=== PATIENT | female | born 1955 | race Caucasian/White ===

== ENCOUNTER 2018-01-08 12:27 | Emergency (ER) | payer OTHER, MEDICAID, SELFPAY ==
[2018-01-08 12:29] VITALS: BP 135/73; PULSE 62; RESP 18; TEMP 37; O2SAT 99
--- NOTE | 2018-01-08 12:32 | DI.CT.S_ITS ---
PROCEDURE: CT HEAD/BRAIN WO CON INDICATIONS: headache, nausea / vomiting after fall hitting head TECHNIQUE: Noncontrast 4.5 mm thick angled axial sections acquired from the foramen magnum to the vertex, with coronal and sagittal reformats. For radiation dose reduction, the following was used: automated exposure control, adjustment of mA and/or kV according to patient size. COMPARISON: None. FINDINGS: Image quality: Excellent. CSF spaces: Basal cisterns are patent. No extra-axial fluid collections. Ventricles are normal in size and shape. Brain: No midline shift. No intracranial masses or hemorrhage. Danielson-white matter interface is normal. Skull and face: Calvarium and visualized facial bones are intact, without suspicious lesions. Sinuses: Mucosal thickening noted in hypoplastic left frontal sinus and scattered throughout the ethmoid air cells bilaterally. mastoids are clear. IMPRESSION: No acute intracranial disease process. Dictated by: Trinh Gillis MD, PhD on 01/08/2018 at 12:53 Approved by: Trinh Gillis MD, PhD on 01/08/2018 at 12:57
--- NOTE | 2018-01-08 12:32 | DI.RAD.S_ITS ---
PROCEDURE: XR RIBS LT MIN 3V W CXR1V INDICATIONS: L rib pain nausea / vomiting after fall hitting head TECHNIQUE: 2 views of the left ribs were acquired, along with a single view chest. COMPARISON: None. FINDINGS: Midline skin be seen. Surgical changes and devices: None. Bones and chest wall: Mildly to moderately displaced left lateral rib fractures are seen anteriorly affecting at least the 9th through 11th ribs. No suspicious bony lesions. Overlying soft tissues appear unremarkable. Lungs and pleura: No pleural effusions or pneumothorax. Lungs appear clear, yet hyperexpanded. Mediastinum: Mediastinal contours appear normal. Heart size is normal. IMPRESSION: Left inferolateral rib fractures. No definite associated pneumothorax. Dictated by: Ben Boyer M.D. on 01/08/2018 at 11:50 Approved by: Ben Boyer M.D. on 01/08/2018 at 11:54
--- NOTE | 2018-01-08 16:21 | ED.FALL ---
HPI - Fall General Chief Complaint: Fall Stated Complaint: FELL,HIT HEAD,BACK AND RIBS Time Seen by Provider: 01/08/18 17:22 Related Data Home Medications Medication Instructions Recorded Confirmed acetaminophen 500 mg capsule 1,000 mg PO Q6H PRN 01/08/18 01/08/18 Previous Rx's Medication Instructions Recorded paroxetine HCl 40 mg PO QDAY #90 tab 06/19/17 sumatriptan succinate 50 mg PO PRN #9 tab 06/19/17 clonazepam 1 mg tablet 1 - 1.5 mg PO BID #90 tab 12/07/17 Allergies Allergy/AdvReac Type Severity Reaction Status Date / Time aspirin [ASPIRIN] Allergy Mild GI UPSET Verified 01/08/18 12:31 caffeine [CAFFEINE] Allergy Mild HYPERACTIVITY Verified 01/08/18 12:31 FOR DAYS ibuprofen [IBUPROFEN] Allergy Mild GI UPSET Verified 01/08/18 12:31 Exam Initial Vital Signs Initial Vital Signs: Vital Signs Temperature 98.6 F 01/08/18 12:29 Pulse Rate 62 01/08/18 12:29 Respiratory Rate 18 01/08/18 12:29 Blood Pressure 135/73 01/08/18 12:29 Pulse Oximetry 99 01/08/18 12:29 PFSH Medical History Anxiety (Chronic ~1989) Chronic headaches (Chronic ~2001) Migraines (Chronic ~1999) Osteoporosis (Chronic ~2003) RLS (restless legs syndrome) (Chronic ~1999) Anemia (Resolved 2006) Chicken pox (Resolved 1961) HPV (human papilloma virus) infection (Resolved 1987) Measles (Resolved 1962) Mumps (Resolved 1959) Surgical History Anesthesia (Resolved) Status post biopsy (Resolved 1985) Status post breast biopsy (Resolved) Family History Father Heart disease Cardiomyopathy Mother Age: 90 Hypertension High cholesterol Osteoporosis Stroke Sister High cholesterol Sister Osteoporosis Social History Smoking Status: Never smoker Course Orders Ordered: ED Orders 01/08/18 12:32 CT head/brain wo con Stat XR ribs LT min 3V w CXR1V Stat Vital Signs - 8 hr 01/08/18 12:29 Temperature 98.6 F Pulse Rate 62 Respiratory Rate 18 Blood Pressure 135/73 Pulse Oximetry 99 MDM - Fall Imaging Data Chest x-ray: Radiologist's impression: [address] [address] XRay Report Signed Patient: Jennifer Humphrey RMR#: [id number] : [id number]:[id number] Age/Sex: 62 / FDate of Service: 01/08/18 Loc: ED Accession Number: [id number] Procedure: XR ribs LT min 3V w CXR1V Ordering Provider: Bianca Em D.O. PROCEDURE: XR RIBS LT MIN 3V W CXR1V INDICATIONS: L rib pain nausea / vomiting after fall hitting head TECHNIQUE: 2 views of the left ribs were acquired, along with a single view chest. COMPARISON: None. FINDINGS: Midline skin be seen. Surgical changes and devices: None. Bones and chest wall: Mildly to moderately displaced left lateral rib fractures are seen anteriorly affecting at least the 9th through 11th ribs. No suspicious bony lesions. Overlying soft tissues appear unremarkable. Lungs and pleura: No pleural effusions or pneumothorax. Lungs appear clear, yet hyperexpanded. Mediastinum: Mediastinal contours appear normal. Heart size is normal. IMPRESSION: Left inferolateral rib fractures. No definite associated pneumothorax. Dictated by: Ben Boyer M.D. on 01/08/2018 at 11:50 Approved by: Ben Boyer M.D. on 01/08/2018 at 11:54 CT scan - head: Radiologist's impression: [place] [address] CT Scan Report Signed Patient: Jennifer Humphrey R#: [id number] : 4Acct:[id number] Age/Sex: 62 / FDate of Service: 01/08/18 Loc: ED Accession Number: [id number] Procedure: CT head/brain wo con Ordering Provider: Bianca Em D.O. PROCEDURE: CT HEAD/BRAIN WO CON INDICATIONS: headache, nausea / vomiting after fall hitting head TECHNIQUE: Noncontrast 4.5 mm thick angled axial sections acquired from the foramen magnum to the vertex, with coronal and sagittal reformats. For radiation dose reduction, the following was used: automated exposure control, adjustment of mA and/or kV according to patient size. COMPARISON: None. FINDINGS: Image quality: Excellent. CSF spaces: Basal cisterns are patent. No extra-axial fluid collections. Ventricles are normal in size and shape. Brain: No midline shift. No intracranial masses or hemorrhage. Danielson-white matter interface is normal. Skull and face: Calvarium and visualized facial bones are intact, without suspicious lesions. Sinuses: Mucosal thickening noted in hypoplastic left frontal sinus and scattered throughout the ethmoid air cells bilaterally. mastoids are clear. IMPRESSION: No acute intracranial disease process. Dictated by: Trinh Gillis MD, PhD on 01/08/2018 at 12:53 Approved by: Trinh Gillis MD, PhD on 01/08/2018 at 12:57 Discharge Plan Departure Prescriptions: No Action sumatriptan succinate 50 MG tablet 50 mg PO PRN Qty: 9 RF: 3 paroxetine HCl 40 MG tablet 40 mg PO QDAY Qty: 90 RF: 3 clonazepam [Klonopin] 1 mg tablet 1 - 1.5 mg PO BID Qty: 90 RF: 1 acetaminophen 500 mg capsule 1,000 mg PO Q6H PRN (Reason: pain) RF: 0
--- NOTE | 2018-01-08 17:28 | ED_ITS ---
HPI - Fall General Chief Complaint: Fall Stated Complaint: FELL,HIT HEAD,BACK AND RIBS Time Seen by Provider: 01/08/18 17:22 Related Data Home Medications Medication Instructions Recorded Confirmed acetaminophen 500 mg capsule 1,000 mg PO Q6H PRN 01/08/18 01/08/18 Previous Rx's Medication Instructions Recorded paroxetine HCl 40 mg PO QDAY #90 tab 06/19/17 sumatriptan succinate 50 mg PO PRN #9 tab 06/19/17 clonazepam 1 mg tablet 1 - 1.5 mg PO BID #90 tab 12/07/17 Allergies Allergy/AdvReac Type Severity Reaction Status Date / Time aspirin [ASPIRIN] Allergy Mild GI UPSET Verified 01/08/18 12:31 caffeine [CAFFEINE] Allergy Mild HYPERACTIVITY Verified 01/08/18 12:31 FOR DAYS ibuprofen [IBUPROFEN] Allergy Mild GI UPSET Verified 01/08/18 12:31 Exam Initial Vital Signs Initial Vital Signs: Vital Signs Temperature 98.6 F 01/08/18 12:29 Pulse Rate 62 01/08/18 12:29 Respiratory Rate 18 01/08/18 12:29 Blood Pressure 135/73 01/08/18 12:29 Pulse Oximetry 99 01/08/18 12:29 PFSH Medical History Anxiety (Chronic ~1989) Chronic headaches (Chronic ~2001) Migraines (Chronic ~1999) Osteoporosis (Chronic ~2003) RLS (restless legs syndrome) (Chronic ~1999) Anemia (Resolved 2006) Chicken pox (Resolved 1961) HPV (human papilloma virus) infection (Resolved 1987) Measles (Resolved 1962) Mumps (Resolved 1959) Surgical History Anesthesia (Resolved) Status post biopsy (Resolved 1985) Status post breast biopsy (Resolved) Family History Father Heart disease Cardiomyopathy Mother Age: 90 Hypertension High cholesterol Osteoporosis Stroke Sister High cholesterol Sister Osteoporosis Social History Smoking Status: Never smoker Course Orders Ordered: ED Orders 01/08/18 12:32 CT head/brain wo con Stat XR ribs LT min 3V w CXR1V Stat Vital Signs - 8 hr 01/08/18 12:29 Temperature 98.6 F Pulse Rate 62 Respiratory Rate 18 Blood Pressure 135/73 Pulse Oximetry 99 MDM - Fall Imaging Data Chest x-ray: Radiologist's impression: [address] [address] XRay Report Signed Patient: Jennifer Humphrey RMR#: [id number] : [id number]:[id number] Age/Sex: 62 / FDate of Service: 01/08/18 Loc: ED Accession Number: [id number] Procedure: XR ribs LT min 3V w CXR1V Ordering Provider: Bianca Em D.O. PROCEDURE: XR RIBS LT MIN 3V W CXR1V INDICATIONS: L rib pain nausea / vomiting after fall hitting head TECHNIQUE: 2 views of the left ribs were acquired, along with a single view chest. COMPARISON: None. FINDINGS: Midline skin be seen. Surgical changes and devices: None. Bones and chest wall: Mildly to moderately displaced left lateral rib fractures are seen anteriorly affecting at least the 9th through 11th ribs. No suspicious bony lesions. Overlying soft tissues appear unremarkable. Lungs and pleura: No pleural effusions or pneumothorax. Lungs appear clear, yet hyperexpanded. Mediastinum: Mediastinal contours appear normal. Heart size is normal. IMPRESSION: Left inferolateral rib fractures. No definite associated pneumothorax. Dictated by: Ben Boyer M.D. on 01/08/2018 at 11:50 Approved by: Ben Boyer M.D. on 01/08/2018 at 11:54 CT scan - head: Radiologist's impression: [place] [address] CT Scan Report Signed Patient: Jennifer Humphrey R#: [id number] : 4Acct:[id number] Age/Sex: 62 / FDate of Service: 01/08/18 Loc: ED Accession Number: [id number] Procedure: CT head/brain wo con Ordering Provider: Bianca Em D.O. PROCEDURE: CT HEAD/BRAIN WO CON INDICATIONS: headache, nausea / vomiting after fall hitting head TECHNIQUE: Noncontrast 4.5 mm thick angled axial sections acquired from the foramen magnum to the vertex, with coronal and sagittal reformats. For radiation dose reduction, the following was used: automated exposure control, adjustment of mA and/or kV according to patient size. COMPARISON: None. FINDINGS: Image quality: Excellent. CSF spaces: Basal cisterns are patent. No extra-axial fluid collections. Ventricles are normal in size and shape. Brain: No midline shift. No intracranial masses or hemorrhage. Danielson-white matter interface is normal. Skull and face: Calvarium and visualized facial bones are intact, without suspicious lesions. Sinuses: Mucosal thickening noted in hypoplastic left frontal sinus and scattered throughout the ethmoid air cells bilaterally. mastoids are clear. IMPRESSION: No acute intracranial disease process. Dictated by: Trinh Gillis MD, PhD on 01/08/2018 at 12:53 Approved by: Trinh Gillis MD, PhD on 01/08/2018 at 12:57 Discharge Plan Departure Prescriptions: No Action sumatriptan succinate 50 MG tablet 50 mg PO PRN Qty: 9 RF: 3 paroxetine HCl 40 MG tablet 40 mg PO QDAY Qty: 90 RF: 3 clonazepam [Klonopin] 1 mg tablet 1 - 1.5 mg PO BID Qty: 90 RF: 1 acetaminophen 500 mg capsule 1,000 mg PO Q6H PRN (Reason: pain) RF: 0
== END 2018-01-08 17:22 | disposition left against medical advice (07) ==
PROVIDERS: Emergency Provider Nurse Practitioner Family; PCP Internal Medicine
DX: S09.90XA Unspecified injury of head, initial encounter (principal); W19.XXXA Unspecified fall, initial encounter
CPT/HCPCS: 70450; 71101; 99281

== ENCOUNTER → 2023-08-11 11:28 | Outpatient (CLI) | payer MEDICARE, SELFPAY ==
[2023-08-11 12:54] LABS: Alanine Aminotransferase 39 IU/L (<35); Albumin 4.2 g/dL (3.5-5.0); Albumin Globulin Ratio 1.6 (1.0-2.8); Alkaline Phosphatase 66 U/L (38-126); Aspartate Aminotransferase 34 IU/L (14-36); BUN Creatinine Ratio 75.6 (6-22); Bilirubin Total 0.4 mg/dL (0.2-1.3); Blood Urea Nitrogen 31 mg/dL (7-17); Calcium 8.9 mg/dL (8.4-10.2); Carbon Dioxide 30 mmol/L (22-32); Chloride 103 mmol/L (98-107); Creatine Kinase 266 U/L (30-135); Estimated Glomerular Filt Rate > 60 mL/min (>60); Globulin 2.6 g/dL (1.7-4.1); Glucose 89 mg/dL (80-110); HEMOLYSIS < 15 (0-50); Potassium 4.5 mmol/L (3.4-5.1); Sodium 136 mmol/L (137-145); Total Protein 6.8 g/dL (6.3-8.2)
== END ==
PROVIDERS: PCP Internal Medicine; Referring Provider Internal Medicine; Visit Provider Internal Medicine
DX: M35.9 Systemic involvement of connective tissue, unspecified (principal); F33.41 Major depressive disorder, recurrent, in partial remission
CPT/HCPCS: 36415; 80053; 82550